=== PATIENT | female | born 1975 | race Caucasian/White ===

== ENCOUNTER → 2016-05-10 | Outpatient (CLI) | payer BC ==
[~2016-05-10] MED LIST: AMLODIPINE-BEN1 EAC4 PO; DELTASONE20 MG PO; FLEXERIL10 MG PO; GLUCOPHAGE500 MG PO; LEXAPRO PO; LIPITOR PO; MINOCYCLINE HCL50 M1 PO
--- NOTE | ~2016-05-10 | MY11 ---
[facility] A Service of [facility] RADIOLOGY TEXT RESULTS PATIENT: LAZARO WELDON LOCATION: [facility] : 75 UNIT #: [id number] AGE: [address]: Starr Haynes MD SEX: F ORDER DR: [id number] [facility] [address] [place], [place] [address] [id number] O MR#: [id number] Acc #: [id number] NAME: LAZARO WELDON : 1975 SEX: F STUDY DATE/TIME: 05/10/2016 16:05 UNIT: [facility] ROOM: STUDY DESCRIPTION: MY Mammogram Screening Dig Jhonathan Attending Physician: Starr Haynes M.D. Ordering Physician: Starr Haynes M.D. Primary Care Physician: Starr Haynes M.D. MEDICAL IMAGING REPORT This report is preliminary unless electronic signature is present EXAM Bilateral digital screening mammogram with CAD. COMPARISON STUDIES None; baseline exam. HISTORY Breast cancer screening. 40-year-old asymptomatic female. No personal or family history of breast cancer. FINDINGS There are scattered fibroglandular densities. There are no suspicious findings in either breast. IMPRESSION No mammographic evidence of malignancy. Continued annual screening mammography and clinical breast exam are recommended. Patients over the age of 40 are entered into a reminder system with target due date for the next mammogram. A result letter will also be sent to the patient. BIRADS: 1 Negative Dictated by... Robert Echavarria M.D. THIS IS AN ELECTRONICALLY VERIFIED REPORT Robert Echavarria M.D. at 05/12/2016 7:01 PM [facility] A Service [facility] RADIOLOGY TEXT RESULTS PATIENT: LAZARO WELDON LOCATION: [facility] : 75 UNIT #: [id number] AGE: [address]: Starr Haynes MD SEX: F ORDER DR: TD: 05/11/2016 12:21 JOB #: [id number] MEDICAL IMAGING REPORT COPY
== END | disposition home or self-care (01) ==
LOC: CWCC 15:36
DX: Z12.31 Encounter for screening mammogram for malignant neoplasm of breast (principal)
CPT/HCPCS: G0202

== ENCOUNTER 2016-09-26 20:39 | Emergency (ER) | payer BC ==
[~2016-09-26] VITALS: Ht 160 cm; Wt 90.7 kg
--- NOTE | ~2016-09-26 | CR58 ---
[facility] A Service of [facility] RADIOLOGY TEXT RESULTS PATIENT: LAZARO WELDON LOCATION: SED : 75 UNIT #: [id number] AGE: [address]: Ileana Jackson SEX: F ORDER DR: [id number] [address] [address] [id number] E MR#: [id number] Acc #: [id number] NAME: LAZARO WELDON : 1975 SEX: F STUDY DATE/TIME: 09/26/2016 21:25 UNIT: SED ROOM: STUDY DESCRIPTION: CR Cervical Spine 2 or 3 Views Attending Physician: Ileana Jackson Pa-C Ordering Physician: Ileana Jackson Pa-C Primary Care Physician: Starr Haynes M.D. MEDICAL IMAGING REPORT This report is preliminary unless electronic signature is present. EXAM Cervical spine 5 views 09/26/2016 HISTORY Neck pain right arm and right shoulder pain, right upper extremity radiculopathy symptoms for 1 month worsening in the last 3 days. No known injury. FINDINGS 5 views of the cervical spine demonstrate no fracture. The posterior vertebral body line is intact and there is no anterolisthesis or retrolisthesis. The disc spaces are normally maintained. Small anterior osteophytes are seen from C2-C5. There is mild degenerative change involving articular facets. There is no retropharyngeal soft tissue swelling. IMPRESSION Mild degenerative change in the cervical spine. No acute abnormality. Dictated by... Chapito Franklin M.D. THIS IS AN ELECTRONICALLY VERIFIED REPORT Chapito Franklin M.D. at 09/27/2016 10:26 AM KRT/to TD: 09/26/2016 22:47 JOB #: [id number] MEDICAL IMAGING REPORT Page 1 of 1
[2016-09-26] MEDS ORDERED: MINOCYCLINE HCL50 M1 PO (20:54)
[2016-09-26] MEDS ORDERED: GLUCOPHAGE500 MG PO (20:54)
[2016-09-26] MEDS ORDERED: LIPITOR PO (20:54)
[2016-09-26] MEDS ORDERED: AMLODIPINE-BEN1 EAC4 PO (20:54)
[2016-09-26] MEDS ORDERED: LEXAPRO PO (20:55)
[2016-09-26] MEDS ORDERED: DELTASONE20 MG PO (22:21)
[2016-09-26] MEDS ORDERED: FLEXERIL10 MG PO (22:21)
== END 2016-09-26 22:23 | disposition home or self-care (01) ==
LOC: SED 20:39
DX: M54.12 Radiculopathy, cervical region (principal); I10 Essential (primary) hypertension; F41.9 Anxiety disorder, unspecified; K76.0 Fatty (change of) liver, not elsewhere classified; Z79.899 Other long term (current) drug therapy
CPT/HCPCS: 72040; 99283